=== PATIENT | female | born 1965 | race African-American/Black ===

== ENCOUNTER → 2016-12-17 | Outpatient (CLI) | payer OTHER ==
--- NOTE | ~2016-12-17 | US77 ---
[facility] A Service of [facility] RADIOLOGY TEXT RESULTS PATIENT: MARQUEZ SHAW LOCATION: [facility] : 65 UNIT #: [id number] AGE: [address]: Pj Calvo MD SEX: F ORDER DR: [id number] [facility] [address] [place], [place] [address] [id number] O MR#: [id number] Acc #: [id number] NAME: MARQUEZ SHAW : 1965 SEX: F STUDY DATE/TIME: 12/17/2016 11:48 UNIT: [facility] ROOM: STUDY DESCRIPTION: US Kidney Bilateral Complete Attending Physician: Pj Calvo M.D. Referring Physician: Pj Calvo M.D. Ordering Physician: Pj Calvo M.D. Primary Care Physician: Dawit Shafer M.D. MEDICAL IMAGING REPORT This report is preliminary unless electronic signature is present EXAM Renal ultrasound 12/17/2016 HISTORY Hydronephrosis, unspecified. Per patient, hematuria for [address] abdomen and pelvis out contrast 10/01/2012. Right upper quadrant abdominal ultrasound 04/22/2011. FINDINGS The right kidney measures 9 x 4.3 x 4.4 cm. A small cyst within the right mid-kidney anteriorly measures 9.8 x 6.3 x 6.9 mm. Left kidney measures 9.7 x 4.3 x 8 4.2 cm. A cyst in the left upper renal pole measures 2.4 x 2.2 x 1.8 cm, and is thought to correspond to the 2.4 cm cyst on the 10/01/2012 CT. Both kidneys maintain normal cortical thickness and cortical echotexture. No suspicious solid renal mass is seen on either side. No shadowing renal stone or hydronephrosis is seen on either side. Urinary bladder is mildly distended with fluid but otherwise has an unremarkable appearance. IMPRESSION 1. No hydronephrosis. 2. 2.4 cm left renal cyst. Approximately 1 cm right renal cyst. 3. Unremarkable appearance of the urinary bladder. Dictated by... Latoya Champagne M.D. THIS IS AN ELECTRONICALLY VERIFIED REPORT [facility] A Service of [facility] RADIOLOGY TEXT RESULTS PATIENT: MARQUEZ SHAW LOCATION: [place] : [birth year] UNIT #: [id number] AGE: [address]: Pj Calvo MD SEX: F ORDER DR: Latoya Champagne M.D. at 12/21/2016 8:40 AM LLH/pcl TD: 12/17/2016 17:50 JOB #: [id number] MEDICAL IMAGING REPORT Page 1 of 1 COPY
== END | disposition home or self-care (01) ==
LOC: CGUS 11:25
DX: N13.30 Unspecified hydronephrosis (principal); N28.1 Cyst of kidney, acquired
CPT/HCPCS: 76770